=== PATIENT | female | born 1985 | race Caucasian/White ===

== ENCOUNTER 2017-08-07 19:44 | Emergency (ER) | payer OTHER ==
[~2017-08-07] VITALS: Ht 167.6 cm; Wt 51.0 kg
[~2017-08-07 19:44] MED LIST: DEXL60CA2 PO; IBUP-1222 PO; LEVO50TA PO; LORA10TA75 PO; OXYC-302 PO; PREN1TAB27 PO; iron PO
[2017-08-07 19:49] VITALS: BP 137/87
[2017-08-07 20:51] LABS: HIV 1&2 ANTIBODY SCREEN Nonreactive (Nonreactive); HIV-1 p24 ANTIGEN Nonreactive (Nonreactive)
[2017-08-08 10:07] LABS: HEP B SURF. AB > 1000.0 mIU/mL (0.0-10.0)
== END 2017-08-07 20:36 | disposition home or self-care (01) ==
LOC: ED 20:30
DX: Z77.21 Contact with and (suspected) exposure to potentially hazardous body fluids (principal); Z88.2 Allergy status to sulfonamides
CPT/HCPCS: 36415; 86703; 86705; 86706; 86803; 87340; 87899; 99284; G0435